=== PATIENT | female | born 1945 | race Caucasian/White ===

== ENCOUNTER → 2016-12-18 | Outpatient (CLI) | payer MEDICARE, BC ==
[~2016-12-18] MED LIST: AMBIEN 5MG TABLE5 MG PO; ASPIRIN E.C. 8181 MG PO; CALCIUM 1200 601 SGL PO; CALCIUM PO; DAILY MULTIPLE1 TAB PO; ESTRACE0.1 MG/GM VG; FLONASE INH; FLONASE NASAL S16 GM NS; HYDROCHLOR50 MG PO; MAG-OX 400400 MG/TAB PO; MELATONIN 0.3MG PO; PRILOSEC 20MG20 MG PO; SIMVASTATIN20 MG PO; SUPER EPA-3001000 MG PO; VAGIFEM VG; VITAMIN C BUFF500 MG PO; VITAMIN C500 MG PO; ZOCOR 20MG20 MG PO; [UNRECOGNIZED DRUG - OTHER] PO
== END ==
LOC: MC.RAD 13:20
DX: Z12.31 Encounter for screening mammogram for malignant neoplasm of breast (principal)

== ENCOUNTER → 2017-12-27 | Outpatient (CLI) | payer MEDICARE, BC | LOC: MC.RAD 13:40 | DX: Z12.31 Encounter for screening mammogram for malignant neoplasm of breast (principal) ==

== ENCOUNTER → 2019-01-21 | Outpatient (CLI) | payer MEDICARE, BC | LOC: MC.RAD 09:00 | DX: Z12.31 Encounter for screening mammogram for malignant neoplasm of breast (principal) ==

== ENCOUNTER 2020-05-21 15:44 | Emergency (ER) | payer MEDICARE, BC ==
[~2020-05-21] VITALS: Ht 160 cm; Wt 70.0 kg
[2020-05-21 16:13] LABS: COLLECTION METHOD CLEAN CATCH
[2020-05-21 16:37] LABS: MUCOUS Present /lpf; PH 6 (5-8); SQUAMOUS EPITHELIAL 0-2 /hpf; URINE APPEARANCE Hazy; URINE BACTERIA Many /hpf; URINE BILIRUBIN Negative (NEGATIVE); URINE BLOOD Negative (NEGATIVE); URINE COLOR Yellow; URINE GLUCOSE Negative (NEGATIVE); URINE KETONE Negative (NEGATIVE); URINE LEUKOCYTE ESTERASE 3+ (NEGATIVE); URINE NITRATE Negative (NEGATIVE); URINE PROTEIN(semi-quant) Negative (NEGATIVE); URINE RBC 0-2 /hpf; URINE UROBILINOGEN Negative (NEGATIVE)
[2020-05-21 16:37] LABS: BASO % 0.5 % (0.0-2.0); EOS # 0.5 (0.0-0.7); EOS % 6.1 % (0-4.0); GRAN # 4.7 (1.4-6.5); GRAN % 56.3 % (42.2-75.2); HEMOGLOBIN 12.6 g/dl (12.5-16.0); LYMPH # 2.6 (1.2-3.4); LYMPH % 30.4 % (20.0-51.0); MEAN CELL VOLUME 94 fl (80.0-100.0); MEAN CORPUSCULAR HEMOGLOBIN 33 pg (27.0-31.0); MEAN CORPUSCULAR HGB CONC 36 g/dl (33.0-37.0); MEAN PLATELET VOLUME 8.7 fl (7.4-10.4); MONO # 0.5 (0.1-0.6); MONO % 6.3 % (1.7-9.3); PLATELET COUNT 229 K/mm3 (130-400); RED BLOOD COUNT 3.77 M/mm3 (4.10-5.30); REDCELL DISTRIBUTION WIDTH-CV 11.9 % (11.5-14.5)
[2020-05-21 16:55] LABS: HEMATOCRIT 35.4 % (37.0-47.0)
[2020-05-21 17:01] LABS: ALANINE AMINOTRANSFERASE 23 U/L (4-34); ALBUMIN 4.5 gm/dL (3.5-5.0); ALKALINE PHOSPHATASE 65 U/L (50-136); ANION GAP 9 mmol/L (7-16); AST,SGOT 38 U/L (15-37); BILIRUBIN,TOTAL 0.5 mg/dL (0.0-1.0); BLOOD UREA NITROGEN 16 mg/dL (7-17); CALCIUM 9.2 mg/dL (8.4-10.2); CARBON DIOXIDE 25 mmol/L (22-30); CHLORIDE 96 mmol/L (98-107); CREATININE, serum 0.85 (0.52-1.25); GLUCOSE 119 mg/dL (74-106); LIPASE 70 U/L (23-300); POTASSIUM 3.7 mmol/L (3.4-5.0); SODIUM 131 mmol/L (137-145); TOTAL PROTEIN 7.8 gm/dL (6.4-8.2)
[2020-05-21 17:20] LABS: C-REACTIVE PROTEIN < 0.5 mg/dL (0.0-0.9)
[2020-05-21] MEDS ORDERED: CEFTIN500 MG PO (17:43)
[2020-05-21 18:19] VITALS: BP 155/94; PULSE 78; TEMP 98.6
== END 2020-05-21 18:24 | disposition home or self-care (01) ==
LOC: COL.ER 15:44
PROVIDERS: Emergency Medicine
DX: N15.9 Renal tubulo-interstitial disease, unspecified (principal); R53.83 Other fatigue; E78.5 Hyperlipidemia, unspecified; Z90.49 Acquired absence of other specified parts of digestive tract; Z79.82 Long term (current) use of aspirin; Z79.899 Other long term (current) drug therapy
CPT/HCPCS: J0696; J1885; J7030

== ENCOUNTER → 2020-06-09 | Outpatient (CLI) | payer MEDICARE, BC ==
[~2020-06-09] MED LIST changes: +CEFTIN500 MG PO
== END ==
LOC: MC.RAD 14:27
DX: Z12.31 Encounter for screening mammogram for malignant neoplasm of breast (principal)

== ENCOUNTER → 2021-08-04 | Outpatient (CLI) | payer MEDICARE, BC | LOC: MC.RAD 09:00 | DX: Z12.31 Encounter for screening mammogram for malignant neoplasm of breast (principal) ==

== ENCOUNTER → 2022-10-15 | Outpatient (CLI) | payer MEDICARE, BC | LOC: MC.RAD 08-06 13:45 | DX: Z12.31 Encounter for screening mammogram for malignant neoplasm of breast (principal) ==

== ENCOUNTER → 2024-06-11 | Outpatient (REF) | payer MEDICARE, BC ==
[~2024-06-11] MED LIST changes: +ALEVE 220MG220 MG PO; +BENTYL 10MG10 MG/CAP PO; +CRESTOR5 MG PO; +IMITREX50 MG PO; +IMODIUM 2MG CAPS2 MG PO; +LEXAPRO 10MG10 MG PO; +METAMUCIL PO; +OMEGA-31 SGL PO; +PRILOTC PO; +TYLENOL 8 HR PO
== END ==
LOC: ZCOL.LAB 16:00
DX: J32.9 Chronic sinusitis, unspecified (principal)

== ENCOUNTER → 2024-07-13 | Outpatient (CLI) | payer MEDICARE, BC ==
[~2024-07-13] MED LIST changes: +Iohexol 300 - 10 ML VIAL IV ONE; +Triamcinolone 40 MG/ML 1 ML VIAL IJ ONE
== END ==
LOC: COL.RAD 12:30
DX: M79.671 Pain in right foot (principal)
CPT/HCPCS: J0665; J3301; Q9967